=== PATIENT | male | born 1965 ===

== ENCOUNTER → 2016-11-20 | Outpatient (CLI) | payer BC | END | disposition home or self-care (01) | LOC: GMAJ 19:36 | PROVIDERS: ATTEND Family Medicine | DX: M25.50 Pain in unspecified joint (principal); E29.1 Testicular hypofunction; I10 Essential (primary) hypertension ==

== ENCOUNTER → 2017-04-18 | Outpatient (CLI) | payer BC | END | disposition home or self-care (01) | LOC: GMAJ 10:13 | PROVIDERS: ATTEND Family Medicine | DX: Z12.5 Encounter for screening for malignant neoplasm of prostate (principal); N52.9 Male erectile dysfunction, unspecified ==

== ENCOUNTER → 2017-12-09 | Outpatient (CLI) | payer BC | LOC: GMAJ 11:08 | PROVIDERS: ATTEND Family Medicine | DX: Z00.00 Encounter for general adult medical examination without abnormal findings (principal) ==